=== PATIENT | male | born 1960 | race Caucasian/White ===

== ENCOUNTER 2024-04-25 12:48 | Outpatient (REF) | payer BC, SELFPAY ==
--- NOTE | ~2024-04-25 | XR_ITS ---
EXAMINATION: Orbits. 3 views. CLINICAL INDICATION: Pre-MRI screening. COMPARISON: None. FINDINGS: There is normal aeration of paranasal sinuses. There is no mucoperiosteal thickening or air-fluid levels. No bony wall abnormality. No radiopaque foreign body seen in the orbits. There is dental fillings noted on the oral cavity. The soft tissues are normal. XR/XR pre mri screening IMPRESSION: No radiopaque foreign body seen in the orbits. The sinuses are clear. Electronically signed by: Smith Yee MD 04/28/2024 09:12 AM EST
--- NOTE | ~2024-04-25 | MR_ITS ---
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 No acute fracture or pathologic bone lesion. Conus medullaris terminates at the L1 level. Cauda equina within normal limits. T12-L1: Small left central disc protrusion. Facet arthrosis. Moderate left lateral recess and left foraminal stenosis L1-L2: Large disc bulge measures 9 mm AP x 17 mm in length. Facet arthrosis. There is mass effect on the conus medullaris. Moderate spinal stenosis. Severe bilateral lateral recess stenosis. Mild right and moderate left foraminal stenosis. L2-L3: Mild disc bulge. Facet arthrosis. Mild spinal stenosis. Moderate bilateral foraminal stenosis. L3-L4: Moderate disc bulge. Facet arthrosis. Mild spinal and bilateral foraminal stenosis. L4-L5: Disc space narrowing and facet arthrosis. No significant disc displacement or spinal stenosis. Moderate bilateral foraminal stenosis. L5-S1: Small central disc protrusion. Facet arthrosis. No spinal stenosis. Mild right and severe left foraminal stenosis. Visualized retroperitoneum unremarkable. Paraspinous musculature intact. IMPRESSION: 1. Multilevel disc herniations and spinal stenoses most prominent at L1-2. 2. Multilevel facet arthropathy and foraminal stenoses most prominent at L5-S1 on the left, L1-2 on the left, L2-3 bilaterally and L4-5 bilaterally. This document has been electronically signed by: Zora Meehan DO on 04/25/2024 15:49:20
== END 2024-04-25 12:49 | disposition home or self-care (01) ==
LOC: HO.MRI 12:48
PROVIDERS: Absent Provider Radiology Diagnostic Radiology; PCP Nurse Practitioner Family; Visit Provider Nurse Practitioner Family
DX: R29.898 Other symptoms and signs involving the musculoskeletal system (principal); M51.16 Intervertebral disc disorders with radiculopathy, lumbar region; M47.27 Other spondylosis with radiculopathy, lumbosacral region; M48.07 Spinal stenosis, lumbosacral region; M47.26 Other spondylosis with radiculopathy, lumbar region; M48.061 Spinal stenosis, lumbar region without neurogenic claudication
CPT/HCPCS: 72148

== ENCOUNTER → 2024-04-25 14:00 | Outpatient (BNV) | payer BC, SELFPAY | PROVIDERS: Absent Provider Radiology Diagnostic Radiology; PCP Nurse Practitioner Family; Visit Provider Radiology Diagnostic Radiology | DX: M47.816 Spondylosis without myelopathy or radiculopathy, lumbar region (principal) | CPT/HCPCS: 72148 ==